=== PATIENT | male | born 2000 | race Caucasian/White ===

== ENCOUNTER 2024-12-06 19:32 | Emergency (ER) | payer BC, SELFPAY ==
[2024-12-06 19:35] VITALS: BP 144/63; PULSE 86; RESP 20; TEMP 36.6; O2SAT 96; BMI 23.0
--- NOTE | 2024-12-06 19:36 | ED_ITS ---
HPI - General Adult General Chief complaint: Nausea/Vomiting/Diarrhea Stated complaint: ecoli? Diarrhea/body aches Time Seen by Provider: 12/06/24 19:49 Source: patient Mode of arrival: ambulatory Limitations: no limitations History of Present Illness ED Provider: Dr. Tolliver [facility] narrative: This is a 23-year-old male no medical history presented hospital today for roughly a week of watery diarrhea. Patient is having some abdominal pain that is old. 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 After 3 days his diarrhea has improved however the past couple of days it is worsening therefore he presents to the ER for further evaluation. He suspect he may have infectious diarrhea. Related Data Previous Rx's ?Medication ?Instructions ?Recorded amoxicillin 875 mg-potassium 1 tab PO BID 14 days #28 tabs 12/06/24 clavulanate 125 mg tablet loperamide 2 mg tablet (Imodium 2 mg PO Q6H PRN loose stool #20 12/06/24 A-D) tabs Allergies Allergy/AdvReac Type Severity Reaction Status Date / Time No Known Allergies Allergy Verified 12/06/24 19:36 Review of Systems 2 Review of Systems: Pertinent review of systems as mentioned in HPI. All other system otherwise negative. [facility] Past Medical History [facility] Narrative: Medical history as mentioned in HPI Social History Social History Smoked in Last 30 Days: No Use of substances other than those prescribed or required for medical reasons: No Advance Directives: No Advance Directives Information Provided: No Physical Exam ED Exam Exam: General: Pleasant, no distress, interacting appropriately, does not appear to be toxic on exam Head: Normacephalic, atraumatic ENT: oral mucosa moist, neck supple, no tracheal deviation Gastrointestinal: Soft, non distended, non tender, non guarding Extremities: No limb pain or swelling, no calf tenderness Neurological: Awake and alert, no facial droop noted Skin: Warm and dry Psychiatric: Appropriate mood and thoughts Vital Signs: Vital Signs - 24 hr 12/06/24 19:35 12/06/24 20:08 12/06/24 22:26 Temperature 97.9 F 97.9 F 97.8 F Pulse Rate 86 86 70 Respiratory Rate 20 20 Blood Pressure 144/63 H 144/63 H 104/46 L Pulse Oximetry 96 96 96 Oxygen Delivery Method Room Air Room Air Room Air BMI result Body Mass Index 23.0 Course Course Course Narrative: This is a Rapid Medical Examination (RME) performed by Edyta Palma PA-C in triage. Full HPI, ROS, assessment and treatment plan per primary provider in the Main ED. Hx: 23 yo M here with concerns for ecoli infection. 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 over the last 1 week he has had 3-4 episodes of watery stools every hour with assoc diffuse abdominal cramping and bpdy aches. no blood in his stools. no one else at the farm w/ similar symptoms. Plan: labs, UA, stool cultures Medications Administered Discontinued Medications Generic Name Dose Route Start Last Admin Trade Name Freq PRN Reason Stop Dose Admin Ceftriaxone Sodium 2 gm 12/06/24 20:30 12/06/24 21:11 Ceftriaxone Sodium 2 Gm Vial IVPUSH 12/06/24 20:31 2 gm ONCE ONE Administration Sodium Chloride 1,000 mls @ 999 mls/hr 12/06/24 20:00 12/06/24 21:06 Ns IV 12/06/24 21:00 Infused .Q1H1M JOE Infusion Loperamide HCl 6 mg 12/06/24 19:52 12/06/24 20:12 Loperamide Hcl 2 Mg Capsule PO 12/06/24 19:53 Not Given ONCE ONE Ondansetron HCl 4 mg 12/06/24 19:52 12/06/24 20:12 Ondansetron Hcl 4 Mg/2 Ml Vial IVPUSH 12/06/24 19:53 Not Given ONCE ONE Medical Decision Making Medical Decision Making [facility] Narrative: 23-year-old male presenting to ER today for a week of watery diarrhea after eating beef that he had process on his own. Abdominal lab work will be obtained on patient. We will plan to give patient some IV Zofran IV fluid, Imodium will be provided the patient as well. Its content by lab the patient has some bandemia on his lab work. However his white blood cell count is 4.5. I think this is reactive due to infectious diarrhea. We will plan to give patient some IV ceftriaxone. Patient does not appear to be toxic does not have a fever does not have tachycardia. We will plan to reassess patient after medication. Since patient stay here. Patient has not had any further diarrhea episode. Patient stated that he feels well. We will plan to discharge patient home with some Imodium and Augmentin to take to treat infectious diarrhea. Patient appears to be stable. I Do not think patient has sepsis. Differential Diagnosis Differential Diagnoses: The differential diagnosis associated with the presentation includes Infectious diarrhea, salmonella infection, E coli, gastritis Lab Data MDM Lab Attestation statement: I reviewed the patient's lab results. 12/06/24 19:44 12/06/24 19:44 Labs: Lab Results 12/06/24 Range/Units 19:44 WBC 4.5 L (4.8-10.8) X10*3/uL RBC 4.93 (4.60-5.80) X10*6/uL Hgb 14.8 (14.0-18.0) g/dl Hct 42.8 (42.0-52.0) % MCV 86.8 (80.0-98.0) fL MCH 30.0 (27.0-33.0) pg MCHC 34.6 (31.0-36.0) g/dl RDW 13.2 (11.0-16.0) % Plt Count 259 (160-400) X10*3/uL MPV 10.0 (9.4-12.4) fL Immature Gran % (Auto) Cancelled Neut % (Auto) Cancelled Lymph % (Auto) Cancelled Glenn % (Auto) Cancelled Eos % (Auto) Cancelled Baso % (Auto) Cancelled Lymph # (Auto) Cancelled Glenn # (Auto) Cancelled Eos # (Auto) Cancelled Baso # (Auto) Cancelled Abs Immat Gran (auto) Cancelled Absolute Neuts (auto) Cancelled Absolute Nucleated RBC 0.000 (0.0-0.012) X10*3/uL Nucleated RBC % (auto) 0.0 (0.0-0.2) /100WBC Neutrophils % (Manual) 21 L (45-73) % Band Neutrophils % 12 H (3-5) % Lymphocytes % (Manual) 40 (20-40) % Atypical Lymphs % (Man) 10 H (0-6) % Monocytes % (Manual) 12 H (2-11) % Eosinophils % (Manual) 3 (0-4) % Basophils % (Manual) 2 (0-2) % Abs Neuts (Manual) 1.5 L (2.0-8.3) X10*3/uL Lymphocytes # (Manual) 1.8 (1.2-4.9) X10*3/uL Atyp Lymphs # (Manual) 0.5 x10*3/uL Monocytes # (Manual) 0.5 (0.1-1.2) X10*3/uL Eosinophils # (Manual) 0.1 (0.0-0.4) X10*3/uL Basophils # (Manual) 0.1 (0.0-0.2) X10*3/uL Platelet Estimate NORMAL (NORMAL) Plt Morphology Comment NORMAL RBC Morphology NORMAL Smear Tech's Comments MANUAL DIFF Sodium 141 (135-145) mmol/L Potassium 3.8 (3.3-5.1) mmol/L Chloride 106 (96-108) mmol/L Carbon Dioxide 27 (22-29) mmol/L Anion Gap 12 (12-20) BUN 13 (9-16) mg/dL Creatinine 1.05 (0.5-1.4) mg/dL Estim Creat Clear Calc 114.2 Estimated GFR > 60 Random Glucose 102 (60-115) mg/dL Calcium 8.9 (8.4-10.2) mg/dL Magnesium 1.9 (1.6-2.6) mg/dL Total Bilirubin 0.7 (0.0-1.0) mg/dL AST 28 (5-37) U/L ALT 27 (0-40) U/L Alkaline Phosphatase 68 (39-117) U/L Total Protein 7.2 (6.5-8.0) g/dL Albumin 4.3 (3.5-5.0) g/dL Lipase 22 (8-78) U/L Discharge Plan Discharge Clinical Impression: Diarrhea of infectious origin Patient Disposition: Home, Self-Care Instructions: Infectious Colitis (ED) Prescriptions: New amoxicillin-pot clavulanate 875-125 mg tablet 1 tab PO BID 14 Days Qty: 28 0RF loperamide [Imodium A-D] 2 mg tablet 2 mg PO Q6H PRN (Reason: loose stool) Qty: 20 0RF Print Language: Mexican
[2024-12-06 19:50] LABS: Hematocrit 42.8 % (42.0-52.0); Hemoglobin 14.8 g/dl (14.0-18.0); Mean Corpuscular HGB Conc 34.6 g/dl (31.0-36.0); Mean Corpuscular Hemoglobin 30.0 pg (27.0-33.0); Mean Corpuscular Volume 86.8 fL (80.0-98.0); NRBC Abs Auto 0.000 X10*3/uL (0.0-0.012); NRBC Pct Auto 0.0 /100WBC (0.0-0.2); Platelet Count 259 X10*3/uL (160-400); Red Blood Count 4.93 X10*6/uL (4.60-5.80); White Blood Count 4.5 X10*3/uL (4.8-10.8)
[2024-12-06 20:04] LABS: Alanine Aminotransferase 27 U/L (0-40); Albumin Level 4.3 g/dL (3.5-5.0); Alkaline Phosphatase 68 U/L (39-117); Anion Gap 12 (12-20); Aspartate Amino Transferase 28 U/L (5-37); Blood Urea Nitrogen 13 mg/dL (9-16); Calcium 8.9 mg/dL (8.4-10.2); Carbon Dioxide 27 mmol/L (22-29); Chloride 106 mmol/L (96-108); Creatinine Clr Calc Pharmacy 114.2; Estimated Glomerular Filt Rate > 60; Lipase 22 U/L (8-78); Magnesium 1.9 mg/dL (1.6-2.6); Potassium 3.8 mmol/L (3.3-5.1); Sodium 141 mmol/L (135-145); Total Protein 7.2 g/dL (6.5-8.0)
[2024-12-06 20:08] VITALS: BP 144/63; PULSE 86; RESP 20; TEMP 36.6; O2SAT 96
--- NOTE | 2024-12-06 20:12 | PC.NURSE ---
pt refused imodium and zofran. made aware.
[2024-12-06 20:19] LABS: Neutrophils Percent Manual 21 % (45-73)
[2024-12-06 20:21] LABS: Atypical Lymph Absolute Manual 0.5 x10*3/uL; Atypical Lymphs Percent Manual 10 % (0-6); Band Neutrophils Percent 12 % (3-5); Basophils Abs Manual 0.1 X10*3/uL (0.0-0.2); Basophils Percent Manual 2 % (0-2); Eosinophils Absolute Manual 0.1 X10*3/uL (0.0-0.4); Eosinophils Percent Manual 3 % (0-4); Lymphocytes Absolute Manual 1.8 X10*3/uL (1.2-4.9); Lymphocytes Percent Manual 40 % (20-40); Monocytes Absolute Manual 0.5 X10*3/uL (0.1-1.2); Monocytes Percent Manual 12 % (2-11); Neutrophils Absolute Manual 1.5 X10*3/uL (2.0-8.3)
[2024-12-06 20:24] LABS: RBC Morphology NORMAL
[2024-12-06 22:26] VITALS: BP 104/46; PULSE 70; TEMP 36.6; O2SAT 96
[2024-12-06 23:23] VITALS: BP 104/46; PULSE 70; RESP 16; TEMP 36.6; O2SAT 96
== END 2024-12-06 23:26 | disposition home or self-care (01) ==
PROVIDERS: Physician Assistant Medical; Emergency Provider Student in an Organized Health Care Education/Training Program
DX: R11.2 Nausea with vomiting, unspecified (principal); A09 Infectious gastroenteritis and colitis, unspecified
CPT/HCPCS: 36415; 80053; 83690; 83735; 85007; 85025; 85027; 96361; 96374; 99284; J0696